=== PATIENT | male | born 1945 | race Caucasian/White ===

== ENCOUNTER 2022-09-27 21:46 | Inpatient (IN) | payer MEDICARE, BC ==
[2022-09-27 22:52] LABS: ANION GAP 9.9 meq/L (7-15); CHLORIDE,CL 102 mmol/L (98-107); SODIUM,NA 137 mmol/L (136-145)
[2022-09-27 22:58] LABS: ESTIMATED GFR 89 mL/min (>=60)
[2022-09-27 22:59] LABS: CORONAVIRUS COVID-19 NAA NEGATIVE (NEGATIVE); RESPIRATORY SYNCYTIAL VIR NAA NEGATIVE (NEGATIVE)
[2022-09-27] MEDS ORDERED: Methotrexate 2.5 MG Tab PO SCH (23:45)
[2022-09-27] MEDS ORDERED: LORazepam 0.5 MG Tab PO PRN (23:46)
[2022-09-27] MEDS ORDERED: Ondansetron 4 MG/2 ML SDV IVPUSH PRN (23:46)
[2022-09-28] MEDS: Nicotine 14 MG/24 Hr Patch TRDERM SCH ×2 (00:17→08:52)
[2022-09-28] MEDS: Polyethylene Glycol 3350 Powder 17 GM Packet PO SCH (00:18)
[2022-09-28] MEDS: cefTRIAXone 2 GM in Sodium Chloride 0.9% 100 ML IV SCH (00:23)
[2022-09-28] MEDS: Sodium Chloride 0.9% 10 ML Syringe FLUSH PRN ×4 (00:26→19:45)
[2022-09-28] MEDS: Azithromycin 500 MG in Sodium Chloride 0.9% 250 ML IV SCH ×2 (00:58→23:51)
[2022-09-28 07:51] LABS: ANION GAP 10.9 meq/L (7-15)
[2022-09-28] MEDS ORDERED: Furosemide 20 MG/2 ML VIAL IVPUSH SCH (08:30)
[2022-09-28] MEDS: Aspirin 81 MG Tab.Chew PO SCH (08:53)
[2022-09-28] MEDS: Furosemide 40 MG/4 ML VIAL IVPUSH SCH ×2 (14:48→19:43)
[2022-09-28] MEDS: Clopidogrel 75 MG Tab PO SCH (14:48)
[2022-09-28] MEDS: Finasteride 5 MG Tab PO SCH (19:42)
[2022-09-28] MEDS: Ascorbic Acid 500 MG Tab PO SCH (19:42)
[2022-09-29] MEDS: cefTRIAXone 2 GM in Sodium Chloride 0.9% 100 ML IV SCH ×2 (00:58→23:33)
[2022-09-29] MEDS: Sodium Chloride 0.9% 10 ML Syringe FLUSH PRN ×4 (01:26→18:21)
[2022-09-29] MEDS: Furosemide 40 MG/4 ML VIAL IVPUSH SCH ×3 (07:53→18:21)
[2022-09-29] MEDS: Clopidogrel 75 MG Tab PO SCH (07:53)
[2022-09-29] MEDS: Aspirin 81 MG Tab.Chew PO SCH (07:53)
[2022-09-29] MEDS: Nicotine 14 MG/24 Hr Patch TRDERM SCH (07:54)
[2022-09-29] MEDS: Potassium Chloride 20 MEQ Tab.ER PO SCH (10:52)
[2022-09-29] MEDS: Acetaminophen 325 MG Tab PO PRN (16:57)
[2022-09-29] MEDS: Finasteride 5 MG Tab PO SCH (19:29)
[2022-09-29] MEDS: Ascorbic Acid 500 MG Tab PO SCH (19:29)
[2022-09-29] MEDS: Polyethylene Glycol 3350 Powder 17 GM Packet PO SCH (23:50)
[2022-09-30] MEDS: Azithromycin 500 MG in Sodium Chloride 0.9% 250 ML IV SCH (00:13)
[2022-09-30] MEDS: Aspirin 81 MG Tab.Chew PO SCH (07:50)
[2022-09-30] MEDS: Potassium Chloride 20 MEQ Tab.ER PO SCH (07:50)
[2022-09-30] MEDS: Azithromycin 250 MG Tab PO SCH (07:50)
[2022-09-30] MEDS: Nicotine 14 MG/24 Hr Patch TRDERM SCH (07:50)
[2022-09-30] MEDS: Clopidogrel 75 MG Tab PO SCH (07:50)
[2022-09-30] MEDS: Furosemide 40 MG/4 ML VIAL IVPUSH SCH (07:51)
[2022-09-30] MEDS: Sodium Chloride 0.9% 10 ML Syringe FLUSH PRN (07:52)
[2022-09-30 09:09] LABS: ANION GAP 10.7 meq/L (7-15)
[2022-09-30] MEDS: Acetaminophen 325 MG Tab PO PRN (10:20)
[2022-09-30] MEDS ORDERED: Gabapentin 300 MG Cap PO ONE (17:16)
[2022-09-30] MEDS: Acetaminophen 650 MG Tab.ER PO PRN (20:24)
[2022-09-30] MEDS: Finasteride 5 MG Tab PO SCH (20:25)
[2022-09-30] MEDS: Albuterol/Ipratropium 3.0-0.5 MG/3 ML Neb Soln NEB SCH (20:26)
[2022-09-30] MEDS: Ascorbic Acid 500 MG Tab PO SCH (20:26)
[2022-10-01] MEDS: Albuterol/Ipratropium 3.0-0.5 MG/3 ML Neb Soln NEB SCH ×3 (02:42→14:53)
[2022-10-01] MEDS: Acetaminophen 650 MG Tab.ER PO PRN ×2 (05:57→16:24)
[2022-10-01] MEDS ORDERED: Gabapentin 300 MG Cap PO SCH (08:00)
[2022-10-01] MEDS: Furosemide 40 MG/4 ML VIAL IVPUSH SCH (08:43)
[2022-10-01] MEDS: Aspirin 81 MG Tab.Chew PO SCH (08:44)
[2022-10-01] MEDS: Azithromycin 250 MG Tab PO SCH (08:44)
[2022-10-01] MEDS: Potassium Chloride 20 MEQ Tab.ER PO SCH (08:44)
[2022-10-01] MEDS: Clopidogrel 75 MG Tab PO SCH (08:44)
[2022-10-01] MEDS: Nicotine 14 MG/24 Hr Patch TRDERM SCH (08:44)
[2022-10-01] MEDS: Sodium Chloride 0.9% 10 ML Syringe FLUSH PRN ×2 (08:45→08:46)
[2022-10-01] MEDS ORDERED: Polyethylene Glycol 3350 Powder 17 GM Packet PO SCH (09:00)
[2022-10-01 12:08] LABS: ANION GAP 7.6 meq/L (7-15)
[2022-10-01 13:30] VITALS: BP 124/51; PULSE 92
[2022-10-01] MEDS ORDERED: Fluticasone NASAL Spray 16 GM Bottle NASBOTH PRN (13:32)
[2022-10-01] MEDS ORDERED: Non-Formulary Medication 1 Each (Ipratropium [Atrovent 0.06% Nasal Spray] 15 ML Bottle) INH PRN (13:32)
[2022-10-01] MEDS ORDERED: Take Home: Albuterol 6.7 GM Inhaler, 1 Inhaler Pack INH PRN (13:32)
[2022-10-01] MEDS ORDERED: Acetaminophen 650 MG Tab.ER PO PRN (13:32)
[2022-10-01] MEDS ORDERED: Metoprolol Tartrate 25 MG Tab PO SCH (18:00)
[2022-10-02] MEDS ORDERED: Cholecalciferol (Vitamin D3) 10 MCG Tab PO SCH (08:00)
[2022-10-02] MEDS ORDERED: Non-Formulary Medication 1 Each (Rosuvastatin [Crestor] 20 MG Tablet) PO SCH (08:00)
[2022-10-02] MEDS ORDERED: Clopidogrel 75 MG Tab PO SCH (08:00)
[2022-10-02] MEDS ORDERED: Furosemide 20 MG Tab PO SCH (08:00)
[2022-10-02] MEDS ORDERED: Folic Acid 1 MG Tab PO SCH (08:00)
[2022-10-02] MEDS ORDERED: Polyethylene Glycol 3350 Powder 17 GM Packet PO SCH (09:00)
== END 2022-10-01 09:00 | disposition swing bed (61) | DRG 871 ==
LOC: LL.ED 21:46 → LL.MS 23:00
PROVIDERS: ADMIT Emergency Medicine; ATTEND Emergency Medicine
DX: A41.01 Sepsis due to Methicillin susceptible Staphylococcus aureus (principal); E86.0 Dehydration; J18.9 Pneumonia, unspecified organism; J44.0 Chronic obstructive pulmonary disease with (acute) lower respiratory infection; Z20.822 Contact with and (suspected) exposure to COVID-19; N39.0 Urinary tract infection, site not specified; E66.9 Obesity, unspecified; M54.50 Low back pain, unspecified; G89.29 Other chronic pain; H54.7 Unspecified visual loss; I11.0 Hypertensive heart disease with heart failure; I50.9 Heart failure, unspecified; E78.00 Pure hypercholesterolemia, unspecified; K59.09 Other constipation; N40.1 Benign prostatic hyperplasia with lower urinary tract symptoms; R33.8 Other retention of urine; E55.9 Vitamin D deficiency, unspecified; F17.200 Nicotine dependence, unspecified, uncomplicated; E78.5 Hyperlipidemia, unspecified; M25.551 Pain in right hip; I25.10 Atherosclerotic heart disease of native coronary artery without angina pectoris; M06.9 Rheumatoid arthritis, unspecified; I25.2 Old myocardial infarction; Z95.5 Presence of coronary angioplasty implant and graft; Z85.828 Personal history of other malignant neoplasm of skin; N40.0 Benign prostatic hyperplasia without lower urinary tract symptoms; F17.210 Nicotine dependence, cigarettes, uncomplicated; Z68.25 Body mass index [BMI] 25.0-25.9, adult; Z79.82 Long term (current) use of aspirin; Z95.1 Presence of aortocoronary bypass graft; Z79.899 Other long term (current) drug therapy
CPT/HCPCS: 0241U; 36415; 71045; 72100; 80048; 80053; 81001; 81003; 82550; 83605; 83880; 84484; 85025; 85027; 85379; 87040; 87086; 87088; 87186; 93005; 93010; 94640; 97162-GP; 97165-GO; 99204; 99223; 99232; 99233; 99238; 99285; A9270-GY; J0456; J0696; J1940; J3490; J7050; J7620-GY

== ENCOUNTER 2022-10-01 09:37 | Inpatient (IN) | payer MEDICARE, BC ==
[2022-10-01] MEDS ORDERED: Ondansetron 4 MG/2 ML SDV IVPUSH PRN (15:35)
[2022-10-01] MEDS ORDERED: Sodium Chloride 0.9% 10 ML Syringe FLUSH PRN (15:35)
[2022-10-01] MEDS: Sodium Chloride 0.9% 10 ML Syringe FLUSH PRN (17:58)
[2022-10-01] MEDS: Azithromycin 500 MG in Sodium Chloride 0.9% 250 ML IV SCH (17:59)
[2022-10-01] MEDS ORDERED: Gabapentin 300 MG Cap PO SCH (18:00)
[2022-10-01] MEDS: Finasteride 5 MG Tab PO SCH (19:42)
[2022-10-01] MEDS: Albuterol/Ipratropium 3.0-0.5 MG/3 ML Neb Soln NEB SCH (19:42)
[2022-10-01] MEDS: cefTRIAXone 1 GM in Sodium Chloride 0.9% 100 ML IV SCH (19:42)
[2022-10-01] MEDS: Ascorbic Acid 500 MG Tab PO SCH (19:42)
[2022-10-02] MEDS: Albuterol/Ipratropium 3.0-0.5 MG/3 ML Neb Soln NEB SCH ×4 (02:27→19:42)
[2022-10-02] MEDS: Sodium Chloride 0.9% 10 ML Syringe FLUSH PRN ×3 (07:34→16:25)
[2022-10-02] MEDS: Potassium Chloride 20 MEQ Tab.ER PO SCH (07:37)
[2022-10-02] MEDS: Furosemide 40 MG/4 ML VIAL IVPUSH SCH (07:38)
[2022-10-02] MEDS: Aspirin 81 MG Tab.Chew PO SCH (07:38)
[2022-10-02] MEDS: Clopidogrel 75 MG Tab PO SCH (07:38)
[2022-10-02] MEDS: Nicotine 14 MG/24 Hr Patch TRDERM SCH (07:39)
[2022-10-02] MEDS: Remove Patch NICOTINE PATCH TRDERM SCH (07:50)
[2022-10-02 07:52] LABS: ANION GAP 6.2 meq/L (7-15)
[2022-10-02] MEDS: Gabapentin 300 MG Cap PO SCH ×4 (07:58→20:44)
[2022-10-02] MEDS ORDERED: Azithromycin 250 MG Tab PO SCH (08:00)
[2022-10-02] MEDS: Azithromycin 500 MG in Sodium Chloride 0.9% 250 ML IV SCH (16:32)
[2022-10-02] MEDS: cefTRIAXone 1 GM in Sodium Chloride 0.9% 100 ML IV SCH (18:23)
[2022-10-02] MEDS: Ascorbic Acid 500 MG Tab PO SCH (19:42)
[2022-10-02] MEDS: Finasteride 5 MG Tab PO SCH (19:42)
[2022-10-03] MEDS: Albuterol/Ipratropium 3.0-0.5 MG/3 ML Neb Soln NEB SCH ×4 (02:17→19:43)
[2022-10-03 07:56] LABS: ANION GAP 8.2 meq/L (7-15)
[2022-10-03] MEDS: Potassium Chloride 20 MEQ Tab.ER PO SCH (08:16)
[2022-10-03] MEDS: Aspirin 81 MG Tab.Chew PO SCH (08:16)
[2022-10-03] MEDS: Clopidogrel 75 MG Tab PO SCH (08:17)
[2022-10-03] MEDS: Nicotine 14 MG/24 Hr Patch TRDERM SCH (08:17)
[2022-10-03] MEDS: Gabapentin 300 MG Cap PO SCH ×3 (08:17→19:44)
[2022-10-03] MEDS: Furosemide 40 MG/4 ML VIAL IVPUSH SCH (08:19)
[2022-10-03] MEDS: Remove Patch NICOTINE PATCH TRDERM SCH (08:46)
[2022-10-03] MEDS: Polyethylene Glycol 3350 Powder 17 GM Packet PO SCH (09:45)
[2022-10-03] MEDS: cefTRIAXone 1 GM in Sodium Chloride 0.9% 100 ML IV SCH (17:06)
[2022-10-03] MEDS: Sodium Chloride 0.9% 10 ML Syringe FLUSH PRN ×2 (17:06→17:40)
[2022-10-03] MEDS: Azithromycin 500 MG in Sodium Chloride 0.9% 250 ML IV SCH (17:39)
[2022-10-03] MEDS: Ascorbic Acid 500 MG Tab PO SCH (19:44)
[2022-10-03] MEDS: Finasteride 5 MG Tab PO SCH (19:44)
[2022-10-03] MEDS ORDERED: LORazepam 1 MG Tab PO PRN (23:31)
[2022-10-04] MEDS: Albuterol/Ipratropium 3.0-0.5 MG/3 ML Neb Soln NEB SCH ×5 (04:13→19:28)
[2022-10-04] MEDS: Aspirin 81 MG Tab.Chew PO SCH (08:18)
[2022-10-04] MEDS: Clopidogrel 75 MG Tab PO SCH (08:18)
[2022-10-04] MEDS: Potassium Chloride 20 MEQ Tab.ER PO SCH (08:18)
[2022-10-04] MEDS: Gabapentin 300 MG Cap PO SCH ×3 (08:18→19:28)
[2022-10-04] MEDS: Remove Patch NICOTINE PATCH TRDERM SCH (08:19)
[2022-10-04] MEDS: Furosemide 40 MG/4 ML VIAL IVPUSH SCH (08:19)
[2022-10-04] MEDS: Nicotine 14 MG/24 Hr Patch TRDERM SCH (08:19)
[2022-10-04] MEDS: Acetaminophen 650 MG Tab.ER PO PRN (08:28)
[2022-10-04] MEDS: Polyethylene Glycol 3350 Powder 17 GM Packet PO SCH (08:28)
[2022-10-04] MEDS: Sodium Chloride 0.9% 10 ML Syringe FLUSH PRN (08:33)
[2022-10-04 08:43] LABS: ANION GAP 5.9 meq/L (7-15)
[2022-10-04] MEDS ORDERED: Furosemide 40 MG Tab PO ONE (19:26)
[2022-10-04] MEDS: Finasteride 5 MG Tab PO SCH (19:28)
[2022-10-04] MEDS: Ascorbic Acid 500 MG Tab PO SCH (19:28)
[2022-10-05] MEDS: Albuterol/Ipratropium 3.0-0.5 MG/3 ML Neb Soln NEB SCH ×4 (01:39→19:37)
[2022-10-05] MEDS: Aspirin 81 MG Tab.Chew PO SCH (07:21)
[2022-10-05] MEDS: Furosemide 40 MG Tab PO SCH (07:21)
[2022-10-05] MEDS: Clopidogrel 75 MG Tab PO SCH (07:21)
[2022-10-05] MEDS: Gabapentin 300 MG Cap PO SCH ×3 (07:21→19:37)
[2022-10-05] MEDS: Nicotine 14 MG/24 Hr Patch TRDERM SCH (07:21)
[2022-10-05] MEDS: Potassium Chloride 20 MEQ Tab.ER PO SCH (07:21)
[2022-10-05] MEDS: Remove Patch NICOTINE PATCH TRDERM SCH (07:24)
[2022-10-05] MEDS: Albuterol/Ipratropium 3.0-0.5 MG/3 ML Neb Soln NEB PRN (07:24)
[2022-10-05] MEDS: Polyethylene Glycol 3350 Powder 17 GM Packet PO SCH (08:00)
[2022-10-05] MEDS ORDERED: Saliva Substitute Oral Spray 120 ML Bottle MUCMEM PRN (10:09)
[2022-10-05] MEDS: Acetaminophen 650 MG Tab.ER PO PRN (17:24)
[2022-10-05] MEDS: Finasteride 5 MG Tab PO SCH (19:37)
[2022-10-05] MEDS: Ascorbic Acid 500 MG Tab PO SCH (19:38)
[2022-10-05] MEDS: Sodium Chloride 0.9% 10 ML Syringe FLUSH PRN (19:42)
[2022-10-06] MEDS: Acetaminophen 650 MG Tab.ER PO PRN (00:51)
[2022-10-06] MEDS: Albuterol/Ipratropium 3.0-0.5 MG/3 ML Neb Soln NEB SCH ×5 (00:51→20:21)
[2022-10-06] MEDS: Furosemide 40 MG Tab PO SCH (09:46)
[2022-10-06] MEDS: Gabapentin 300 MG Cap PO SCH ×3 (09:46→20:21)
[2022-10-06] MEDS: Nicotine 14 MG/24 Hr Patch TRDERM SCH (09:47)
[2022-10-06] MEDS: Aspirin 81 MG Tab.Chew PO SCH (09:47)
[2022-10-06] MEDS: Clopidogrel 75 MG Tab PO SCH (09:47)
[2022-10-06] MEDS: Remove Patch NICOTINE PATCH TRDERM SCH (09:48)
[2022-10-06] MEDS: Albuterol/Ipratropium 3.0-0.5 MG/3 ML Neb Soln NEB PRN (10:55)
[2022-10-06] MEDS ORDERED: Gabapentin 300 MG Cap ONE (16:09)
[2022-10-06] MEDS: Ascorbic Acid 500 MG Tab PO SCH (20:21)
[2022-10-06] MEDS: Finasteride 5 MG Tab PO SCH (20:21)
[2022-10-07] MEDS: Albuterol/Ipratropium 3.0-0.5 MG/3 ML Neb Soln NEB SCH ×4 (01:00→19:43)
[2022-10-07 07:39] LABS: ANION GAP 5.2 meq/L (7-15)
[2022-10-07] MEDS: Nicotine 14 MG/24 Hr Patch TRDERM SCH (08:09)
[2022-10-07] MEDS: Aspirin 81 MG Tab.Chew PO SCH (08:09)
[2022-10-07] MEDS: Clopidogrel 75 MG Tab PO SCH (08:11)
[2022-10-07] MEDS: Gabapentin 300 MG Cap PO SCH ×3 (08:12→19:43)
[2022-10-07] MEDS: Furosemide 40 MG Tab PO SCH (08:12)
[2022-10-07] MEDS: Remove Patch NICOTINE PATCH TRDERM SCH (08:15)
[2022-10-07] MEDS: Polyethylene Glycol 3350 Powder 17 GM Packet PO SCH (08:55)
[2022-10-07] MEDS ORDERED: Nicotine 7 MG/24 Hr Patch TRDERM SCH (12:15)
[2022-10-07] MEDS: Ascorbic Acid 500 MG Tab PO SCH (19:43)
[2022-10-07] MEDS: Finasteride 5 MG Tab PO SCH (19:43)
[2022-10-08] MEDS: Albuterol/Ipratropium 3.0-0.5 MG/3 ML Neb Soln NEB SCH ×4 (01:10→20:27)
[2022-10-08] MEDS: Aspirin 81 MG Tab.Chew PO SCH (07:47)
[2022-10-08] MEDS: Furosemide 40 MG Tab PO SCH (07:47)
[2022-10-08] MEDS: Clopidogrel 75 MG Tab PO SCH (07:47)
[2022-10-08] MEDS: Gabapentin 300 MG Cap PO SCH ×3 (07:47→20:27)
[2022-10-08] MEDS: Remove Patch NICOTINE PATCH TRDERM SCH (07:49)
[2022-10-08] MEDS: Nicotine 7 MG/24 Hr Patch TRDERM SCH (07:49)
[2022-10-08] MEDS: Acetaminophen 650 MG Tab.ER PO PRN (20:27)
[2022-10-08] MEDS: Ascorbic Acid 500 MG Tab PO SCH (20:27)
[2022-10-08] MEDS: Finasteride 5 MG Tab PO SCH (20:27)
[2022-10-09] MEDS: Albuterol/Ipratropium 3.0-0.5 MG/3 ML Neb Soln NEB SCH ×4 (01:36→19:39)
[2022-10-09] MEDS: Acetaminophen 650 MG Tab.ER PO PRN ×3 (04:21→19:39)
[2022-10-09] MEDS: Gabapentin 300 MG Cap PO SCH ×3 (08:59→19:39)
[2022-10-09] MEDS: Furosemide 40 MG Tab PO SCH (09:19)
[2022-10-09] MEDS: Aspirin 81 MG Tab.Chew PO SCH (09:20)
[2022-10-09] MEDS: Nicotine 7 MG/24 Hr Patch TRDERM SCH (09:20)
[2022-10-09] MEDS: Clopidogrel 75 MG Tab PO SCH (09:20)
[2022-10-09] MEDS: Remove Patch NICOTINE PATCH TRDERM SCH (14:16)
[2022-10-09] MEDS: Polyethylene Glycol 3350 Powder 17 GM Packet PO SCH (14:59)
[2022-10-09] MEDS: Ascorbic Acid 500 MG Tab PO SCH (19:39)
[2022-10-09] MEDS: Finasteride 5 MG Tab PO SCH (19:39)
[2022-10-10] MEDS: Albuterol/Ipratropium 3.0-0.5 MG/3 ML Neb Soln NEB SCH ×4 (01:42→19:39)
[2022-10-10] MEDS: Acetaminophen 650 MG Tab.ER PO PRN ×2 (08:25→19:38)
[2022-10-10] MEDS: Aspirin 81 MG Tab.Chew PO SCH (08:25)
[2022-10-10] MEDS: Gabapentin 300 MG Cap PO SCH ×3 (08:25→19:38)
[2022-10-10] MEDS: Clopidogrel 75 MG Tab PO SCH (08:25)
[2022-10-10] MEDS: Nicotine 7 MG/24 Hr Patch TRDERM SCH (08:25)
[2022-10-10] MEDS: Furosemide 40 MG Tab PO SCH (08:26)
[2022-10-10] MEDS: Remove Patch NICOTINE PATCH TRDERM SCH (08:27)
[2022-10-10] MEDS: Finasteride 5 MG Tab PO SCH (19:38)
[2022-10-10] MEDS: Ascorbic Acid 500 MG Tab PO SCH (19:39)
[2022-10-11] MEDS: Albuterol/Ipratropium 3.0-0.5 MG/3 ML Neb Soln NEB SCH ×4 (03:39→19:28)
[2022-10-11] MEDS: Acetaminophen 650 MG Tab.ER PO PRN ×2 (03:50→12:55)
[2022-10-11] MEDS: Clopidogrel 75 MG Tab PO SCH (07:57)
[2022-10-11] MEDS: Furosemide 40 MG Tab PO SCH (07:57)
[2022-10-11] MEDS: Aspirin 81 MG Tab.Chew PO SCH (07:57)
[2022-10-11] MEDS: Gabapentin 300 MG Cap PO SCH ×3 (07:57→19:27)
[2022-10-11] MEDS: Remove Patch NICOTINE PATCH TRDERM SCH (08:04)
[2022-10-11] MEDS: Polyethylene Glycol 3350 Powder 17 GM Packet PO SCH (08:04)
[2022-10-11] MEDS: Nicotine 7 MG/24 Hr Patch TRDERM SCH (08:04)
[2022-10-11] MEDS: Ascorbic Acid 500 MG Tab PO SCH (19:27)
[2022-10-11] MEDS: Finasteride 5 MG Tab PO SCH (19:27)
[2022-10-12] MEDS: Albuterol/Ipratropium 3.0-0.5 MG/3 ML Neb Soln NEB SCH ×4 (01:20→19:13)
[2022-10-12] MEDS: Acetaminophen 650 MG Tab.ER PO PRN ×2 (08:06→17:39)
[2022-10-12] MEDS: Gabapentin 300 MG Cap PO SCH ×3 (08:07→19:13)
[2022-10-12] MEDS: Aspirin 81 MG Tab.Chew PO SCH (08:08)
[2022-10-12] MEDS: Clopidogrel 75 MG Tab PO SCH (08:08)
[2022-10-12] MEDS: Furosemide 40 MG Tab PO SCH (08:08)
[2022-10-12] MEDS: Nicotine 7 MG/24 Hr Patch TRDERM SCH (08:18)
[2022-10-12] MEDS: Remove Patch NICOTINE PATCH TRDERM SCH (08:22)
[2022-10-12 14:05] LABS: ANION GAP 7.4 meq/L (7-15)
[2022-10-12] MEDS: Finasteride 5 MG Tab PO SCH (19:13)
[2022-10-12] MEDS: Ascorbic Acid 500 MG Tab PO SCH (19:13)
[2022-10-13] MEDS: Albuterol/Ipratropium 3.0-0.5 MG/3 ML Neb Soln NEB SCH ×2 (01:16→08:03)
[2022-10-13] MEDS: Albuterol/Ipratropium 3.0-0.5 MG/3 ML Neb Soln NEB PRN (04:00)
[2022-10-13] MEDS: Nicotine 7 MG/24 Hr Patch TRDERM SCH (07:57)
[2022-10-13] MEDS: Gabapentin 300 MG Cap PO SCH (07:58)
[2022-10-13] MEDS: Aspirin 81 MG Tab.Chew PO SCH (07:58)
[2022-10-13] MEDS: Clopidogrel 75 MG Tab PO SCH (07:58)
[2022-10-13] MEDS: Furosemide 40 MG Tab PO SCH (07:58)
[2022-10-13] MEDS: Remove Patch NICOTINE PATCH TRDERM SCH (07:58)
[2022-10-13] MEDS: Polyethylene Glycol 3350 Powder 17 GM Packet PO SCH (08:00)
[2022-10-13 09:32] VITALS: BP 131/67; PULSE 105
== END 2022-10-13 10:53 | disposition home or self-care (01) | DRG 194 ==
LOC: UNDOADMIN 09:37 → LL.MS 09:37
PROVIDERS: ADMIT Emergency Medicine; ATTEND Emergency Medicine
DX: J18.9 Pneumonia, unspecified organism (principal); F05 Delirium due to known physiological condition; N39.0 Urinary tract infection, site not specified; J44.0 Chronic obstructive pulmonary disease with (acute) lower respiratory infection; R41.0 Disorientation, unspecified; Z98.890 Other specified postprocedural states; Z79.82 Long term (current) use of aspirin; Z79.899 Other long term (current) drug therapy
CPT/HCPCS: 36415; 71046; 80048; 80053; 81003; 82140; 83735; 83880; 84484; 85025; 85379; 86140; 94640; 97110-GO; 97110-GP; 97162-GP; 97530-GO; 97530-GP; 97535-GO; A9270-GY; J0456; J0696; J1940; J3490; J7050; J7620-GY